=== PATIENT | female | born 1960 | race Caucasian/White ===

== ENCOUNTER 2017-01-23 00:02 | Emergency (ER) ==
--- NOTE | 2017-01-23 00:36 | PROVIDER DOCUMENTATION ---
HPI-Work Related Injury - General Chief Complaint: Fall Stated Complaint: FELL AT WORK Time Seen by Provider: 01/23/17 00:15 Source: patient Allergies/Adverse Reactions: Patient Allergies Allergy/AdvReac Type Severity Reaction Status Date / Time codeine Allergy Intermediate RASH Verified 11/15/13 22:23 sulfamethoxazole Allergy Intermediate NAUSEA Verified 11/15/13 22:23 [From Bactrim] trimethoprim [From Bactrim] Allergy Intermediate NAUSEA Verified 11/15/13 22:23 Home Medications: Home Medication List Medication Instructions Recorded Confirmed Last Taken Type Citalopram Hydrobromide [Celexa] 5 mg PO DAILY 11/15/13 01/23/17 11/15/13 08:00 History Montelukast Sodium [Singulair] 10 mg PO DAILY 01/23/17 01/23/17 Unknown History Phentermine HCl [Adipex-P] 37.5 mg PO DAILY 01/23/17 01/23/17 Unknown History Tizanidine HCl [Zanaflex] 6 mg PO DAILY 01/23/17 01/23/17 Unknown History Tramadol [Ultram] 50 mg PO BID 01/23/17 01/23/17 Unknown History Tramadol [Ultram] 100 mg PO HS 01/23/17 01/23/17 Unknown History - History of Present Illness-Work Injury Nature of PresentingProblem: 56 y/o F c/o R shoulder, elbow, hip, knee pain s/p fall at work. Pt states that she was wrapping a pallet at work and tripped. States fell on her R elbow and R knee, but also c/o pain to R shoulder, hip, neck. Denies any head injury , LOC. States pain to R side of neck. Reports hx of chronic pain due to fibromyalgia. Pt able to ambulate. Denies numbness/tingling. Review of Systems - Adult - REVIEW OF SYSTEMS - ADULT Constitutional: reports: no symptoms reported. denies: chills, fever Eyes: reports: no symptoms reported. denies: blurred vision, double vision Ears, Nose, Mouth & Throat: reports: no symptoms reported. denies: ear pain, nose pain Cardiovascular: reports: no symptoms reported. denies: chest pain, palpitations Respiratory: reports: no symptoms reported. denies: dyspnea on exertion, shortness of breath Gastrointestinal: reports: no symptoms reported. denies: nausea, vomiting Genitourinary: reports: no symptoms reported. denies: dysuria, frequency Musculoskeletal: reports: see HPI, joint pain, neck pain. denies: back pain Integumentary: reports: no symptoms reported. denies: nail changes, rash Neurological: reports: no symptoms reported. denies: dizziness/vertigo, headache/migraines, numbness, paresthesia, syncope Psychiatric: reports: no symptoms reported Endocrine: reports: no symptoms reported. denies: cold intolerance, heat intolerance Hematologic/Lymphatic: reports: no symptoms reported. denies: easy bruising, prolonged bleeding Allergic/Immunologic: reports: no symptoms reported All Other Systems: Reviewed and Negative Past History - Adult - PAST MEDICAL HISTORY-ADULT Review of Records: reports: Nursing Assessment Review, Medications Reviewed - SOCIAL HISTORY Smoking: denies Physical Exam-Injury Related - Physical Exam-Injury Related Initial Vital Signs Reviewed: Yes General Appearance: alert, mild distress Eyes: PERRL/EOMI, pink conjunctivae. negative: EOM palsy Head, Ears, Nose, Mouth & Throat: normocephalic/atraumatic, moist mucous membranes. negative: hearing deficit Neck: supple, normal inspection. negative: C-spine tenderness Respiratory: lungs clear, normal breath sounds. negative: crackles, rales, rhonchi, stridor, wheezing Cardiovascular: regular rate, rhythm. negative: bradycardia, tachycardia Peripheral Pulses: radial (R): 2+, radial (L): 2+ Back Exam: normal inspection Extremity: normal gait, normal inspection, normal capillary refill. negative: abnormal NV exam Integumentary: normal color, warm/dry, blanching Neurologic: demand planning manager II-XII nml as tested. negative: aphasia, EOM palsy, facial droop, motor weakness, sensory deficit Psych/Mental Status: normal mood/affect, normal thought content, normal thought process, oriented x 3 Progress - PLAN OF CARE/RESULTS Progress/Plan/Lab Results: Orders Category Date Time Status Arm Sling DIRECTED Care 01/23/17 01:27 Active CERVICAL SPINE COMPLETE [RAD] Stat Exams 01/23/17 00:24 Completed ELBOW COMPLETE RIGHT [RAD] Stat Exams 01/23/17 00:24 Completed KNEE 3 VIEWS RIGHT [RAD] Stat Exams 01/23/17 00:24 Completed TRAUMA SHOULDER RIGHT [RAD] Stat Exams 01/23/17 00:24 Completed XRAY PELVIS W/HIP 2-3VW RT [RAD] Stat Exams 01/23/17 00:26 Completed Vital Signs Temp Pulse Resp BP Pulse Ox 01/23/17 01:45 97.6 F 64 16 127/78 98 01/23/17 00:06 98.2 F 73 18 156/101 100 codeine Allergy (Intermediate, Verified 11/15/13 22:23) RASH sulfamethoxazole [From Bactrim] Allergy (Intermediate, Verified 11/15/13 22:23) NAUSEA trimethoprim [From Bactrim] Allergy (Intermediate, Verified 11/15/13 22:23) NAUSEA Citalopram Hydrobromide [Celexa] 5 mg PO DAILY 11/15/13 Montelukast Sodium [Singulair] 10 mg PO DAILY 01/23/17 Phentermine HCl [Adipex-P] 37.5 mg PO DAILY 01/23/17 Tizanidine HCl [Zanaflex] 6 mg PO DAILY 01/23/17 Tramadol [Ultram] 50 mg PO BID 01/23/17 Tramadol [Ultram] 100 mg PO HS 01/23/17 Diuscussed results and f/u with pt. - XRAY 1 XRAY: Right XRAY Study: Pelvis, Hip XRAY Interpretation: No fx 2 XRAY: Right XRAY Study: Shoulder, Elbow XRAY Interpretation: No fx 3 XRAY: Right XRAY Study: Knee XRAY Interpretation: No fx 4 XRAY Study: C-Spine XRAY Interpretation: No fx, subluxation Procedures - SPLINTING Right Upper Extremity Pre-Procedure Neurovascular Exam: Intact Pre-Fabricated Splint: Arm Sling Applied By: ED Nurse Post Procedure Neurovascular Exam: Intact Procedure Comment: Pt tolerated well Departure - Departure Time of Disposition Order: 01:24 DIAGNOSIS: Elbow abrasion Qualifiers: Encounter type: initial encounter Laterality: right Qualified Code(s): S50.311A - Abrasion of right elbow, initial encounter Knee abrasion Qualifiers: Encounter type: initial encounter Laterality: right Qualified Code(s): S80.211A - Abrasion, right knee, initial encounter Shoulder sprain Qualifiers: Encounter type: initial encounter Shoulder sprain type: unspecified sprain Laterality: right Qualified Code(s): S43.401A - Unspecified sprain of right shoulder joint, initial encounter Knee pain Qualifiers: Laterality: right Chronicity: acute Qualified Code(s): M25.561 - Pain in right knee Neck strain Qualifiers: Encounter type: initial encounter Qualified Code(s): S16.1XXA - Strain of muscle, fascia and tendon at neck level, initial encounter Disposition: HOME 01 Certified Medical Emergency: Emergent Condition: Stable Additional Instructions: Follow up with specialist for further management. RICE as needed. Tylenol or motrin for pain. ED Follow Up Instructions: You have been treated by a care provider in the Emergency Department. These instructions are being provided to you so you can have an understanding of how to care for yourself upon discharge. Upon discharge from the Emergency Department, you are responsible for making arrangements for follow-up care by a physician of your choice. Take all prescribed medications as directed. Return to the Emergency Department immediately for any new or worsening symptoms. You may call the Physician Referral phone number at [phone] to obtain a list of Physicians who are taking new patients. Referrals: Jean Lopez MD [Primary Care Provider] - José Miguel Schilling MD [STAFF PHYSICIAN] - Forms: Return to School/Parent Work Instructions: Shoulder Pain, [id number], Cervical Sprain, [id number], Abrasion, [id number], Knee Pain, [id number] Attestation - Physician/ TRIP Attestation Patient care was provided by Advanced Practice Provider:: Yes Advanced Practice Provider:: Larisa Turcios Advanced Practice Provider documentation review:: The Mid-level provider documentation, treatment plan and medical decision making was reviewed by the physician who agrees with all treatment and medical decision making by the MLP.
[2017-01-23 01:47] VITALS: BP 127/78
--- NOTE | 2017-01-23 13:22 | Diag Imaging Result Document ---
PROCEDURE NAME: KNEE 3 VIEWS RIGHT - 01/23/2017 PLAIN RADIOGRAPH OF THE RIGHT KNEE, 3 VIEWS: COMPARISON: None available. FINDINGS: There is a tiny bone spur arising from the metaphysis of the proximal tibia. There is no evidence of fracture, dislocation, or intrinsic osseous lesion, otherwise. Joint spaces are preserved. Surrounding soft tissues are grossly unremarkable. IMPRESSION: No evidence of acute osseous abnormality.
--- NOTE | 2017-01-23 13:24 | Diag Imaging Result Document ---
PROCEDURE NAME: ELBOW COMPLETE RIGHT - 01/23/2017 PLAIN RADIOGRAPH OF THE RIGHT ELBOW, 3 VIEWS: COMPARISON: None available. FINDINGS: There are tiny bone spurs at the medial aspect of the humerus at the epicondyle and tiny bone spurs at the joint surface of the proximal ulna. There is no evidence of fracture, dislocation, or intrinsic osseous lesion otherwise. Surrounding soft tissues are essentially unremarkable. IMPRESSION: Mild degenerative changes. No definite acute osseous abnormality.
--- NOTE | 2017-01-23 13:30 | Diag Imaging Result Document ---
PROCEDURE NAME: TRAUMA SHOULDER RIGHT - 01/23/2017 PLAIN RADIOGRAPH OF THE RIGHT SHOULDER, 3 VIEWS: COMPARISON: None available. FINDINGS: There are mild degenerative changes at the AC joint and humeral head. There is no evidence of fracture, dislocation, or intrinsic osseous lesion, otherwise. Surrounding soft tissues are grossly unremarkable. IMPRESSION: Mild degenerative changes. No definite acute osseous abnormality.
--- NOTE | 2017-01-23 13:36 | Diag Imaging Result Document ---
PROCEDURE NAME: CERVICAL SPINE COMPLETE - 01/23/2017 PLAIN RADIOGRAPH OF THE CERVICAL SPINE, 6 VIEWS: COMPARISON: None available. FINDINGS: There is degenerative disk disease with loss of disk space height and marginal osteophyte formation at C5-6 and C6-7. There is no discrete fracture, subluxation, or intrinsic osseous lesion, otherwise. Surrounding soft tissues are grossly unremarkable. IMPRESSION: Degenerative changes as described. No definite acute osseous abnormality.
--- NOTE | 2017-01-23 13:52 | Diag Imaging Result Document ---
PROCEDURE NAME: XRAY PELVIS W/HIP 2-3VW RT - 01/23/2017 PLAIN RADIOGRAPH OF THE RIGHT HIP, 3 VIEWS: COMPARISON: None available. FINDINGS: There is no discrete fracture, dislocation, or intrinsic osseous lesion. The visualized joint spaces are essentially unremarkable. The surrounding soft tissues are grossly unremarkable. IMPRESSION: No evidence of acute osseous abnormality.
== END 2017-01-23 02:23 | disposition home or self-care (01) ==
LOC: P.ED 00:02
DX: S50.311A Abrasion of right elbow, initial encounter (principal); S80.211A Abrasion, right knee, initial encounter; S43.401A Unspecified sprain of right shoulder joint, initial encounter; S16.1XXA Strain of muscle, fascia and tendon at neck level, initial encounter; M25.561 Pain in right knee; M25.511 Pain in right shoulder; M25.521 Pain in right elbow; M25.551 Pain in right hip; M54.2 Cervicalgia; G89.29 Other chronic pain; M79.7 Fibromyalgia; Z79.899 Other long term (current) drug therapy; W01.0XXA Fall on same level from slipping, tripping and stumbling without subsequent striking against object, initial encounter
CPT/HCPCS: 72050; 99283